=== PATIENT | female | born 1995 | race American Indian/Alaskan Native ===

== ENCOUNTER 2021-03-10 19:03 | Outpatient (CLI) | payer OTHER ==
[2021-03-10 20:26] LABS: Hematocrit 36.5 % (30.3-42.9); Hemoglobin 12.6 gm/dl (10.1-14.3); Mean Corpuscular HGB Conc 34 % (30-34); Mean Corpuscular Volume 96 fl (79-97); Platelet Count 204 K/mm3 (140-440); Red Blood Count 3.82 M/mm3 (3.65-5.03); Red Cell Distribution Width 12.3 % (13.2-15.2)
[2021-03-10 20:28] LABS: Bilirubin,Urine NEG (Negative); Blood,Urine NEG (Negative); Color,Urine Yellow (Yellow); Protein,Urine <15 mg/dL mg/dL (Negative); Urobilinogen,Urine < 2.0 mg/dL (<2.0)
[2021-03-10 20:47] LABS: Alanine Aminotransferase 22 units/L (7-56); Uric Acid 3.6 mg/dL (3.5-7.6)
--- NOTE | 2021-03-10 23:06 | Ultrasound Report ---
ULTRASOUND ABDOMEN, LIMITED (RIGHT UPPER QUADRANT) INDICATION: Right upper quadrant pain. Rule out gallstones. COMPARISON: None available. FINDINGS: PANCREAS: No significant abnormality. LIVER: 16.6 cm in length with a normal echo pattern, no focal lesion and normal directional blood dwayne w in the main portal vein. GALLBLADDER: No significant abnormality. BILE DUCTS: No significant abnormality. Common bile duct measures 3.8 mm. FREE FLUID: None. ADDITIONAL FINDINGS: Images of the right kidney are unremarkable. IMPRESSION: No significant sonographic abnormality of the right upper quadrant. Signer Name: Juan Antonio White MD Signed: 03/10/2021 11:02 PM Workstation Name: [id number]
[2021-03-10 23:18] VITALS: BP 96/58
== END 2021-03-10 23:43 | disposition home or self-care (01) ==
LOC: TRG 19:03 → APU 19:04 → TRG 23:43
PROVIDERS: ATTEND Obstetrics & Gynecology
DX: O26.893 Other specified pregnancy related conditions, third trimester (principal); R10.11 Right upper quadrant pain; Z3A.31 31 weeks gestation of pregnancy
CPT/HCPCS: 36415; 59025; 76705; 81001; 82565; 83615; 84450; 84460; 84550; 85027

== ENCOUNTER 2021-05-09 12:42 | Outpatient (CLI) | payer OTHER ==
[2021-05-09 14:10] VITALS: BP 118/70
--- NOTE | 2021-05-09 15:27 | Ultrasound Report ---
ULTRASOUND BIOPHYSICAL PROFILE INDICATION: NON REACTIVE NST IN THE OFFICE - BPP. COMPARISON: None available. FINDINGS: breathing movement = 2 Gross body movement = 2 tone = 2 Qualitative amniotic fluid volume = 2 Total biophysical score = 8/8 Amniotic fluid index is 9.6 cm. Presentation is Cephalic. heart rate is 157 beats per minute. IMPRESSION: biophysical profile = 09/18 Amniotic fluid index is within normal limits Signer Name: Elliott Waller MD Signed: 05/09/2021 3:22 PM Workstation Name: [id number]
--- NOTE | 2021-05-10 09:23 | Ultrasound Report ---
Limited OB Ultrasound HISTORY: NON REACTIVE NST IN THE OFFICE - NEELIMA. TECHNIQUE: Grayscale and color imaging performed. COMPARISON: Biophysical profile ultrasound from the same day FINDINGS: Single viable intrauterine gestation with cephalic presentation. NEELIMA is 9.6 cm. Heart rate during this portion of the exam was 148 bpm. IMPRESSION: Unremarkable limited exam as above. Signer Name: Ruel Godinez MD Signed: 05/10/2021 9:19 AM Workstation Name: [id number]
== END 2021-05-09 14:38 | disposition home or self-care (01) ==
LOC: TRG 12:42 → APU 12:43 → TRG 14:38
PROVIDERS: ATTEND Obstetrics & Gynecology
DX: Z34.93 Encounter for supervision of normal pregnancy, unspecified, third trimester (principal); Z3A.40 40 weeks gestation of pregnancy
CPT/HCPCS: 59025; 76815; 76819

== ENCOUNTER 2021-05-17 14:30 | Inpatient (IN) | payer OTHER ==
--- NOTE | 2021-05-17 17:09 | History and Physical Report ---
History of Present Illness Date of examination: 05/17/21 Date of admission: 05/18/2021 Chief complaint: My contractions were getting worse. History of present illness: Pt is a @ 41.3 wks who presented to triage with c/o ongoing painful ctxs since 0700am this morning. She was to be admitted for a postdates IOL at 2029. EDC Confirmation: 05/07/2021 Gestational Age: 41.3 weeks on admission Past History : 1 Term Births: 0 Premature Births: 0 Living Children: 0 Para: 0 Mult. Births: 0 Prev : 0 Aborta: 0 Elect. Ab: 0 Spont. Ab: 0 Ectopics: 0 Past Medical History: Reviewed and updated today: Allergies-seasonal Asthma [facility] Past Surgical History: Reviewed and updated today: Negative Past Surgical History Family History Summary: Other Family Member - Has No Family History of Ovarvian Cancer - Entered On: 10/10/2020 Other Family Member - Has No Family History of Colon Cancer - Entered On: 10/10/2020 Other Family Member - Has Family History of Hypertension - Entered On: 10/10/2020 Other Family Member - Has Family History of Diabetes - Entered On: 10/10/2020 Other Family Member - Has Family History Breast Cancer - Entered On: 10/10/2020 Social History: Marital Status: Single Children: 0 Occupation: [employer] Developer Smoking History: Patient has never smoked. Risk Factors: Smoked Tobacco Use: Never smoker Smokeless Tobacco Use: Never Counseled to Quit/Cut Down: yes Passive Smoke Exposure: no HIV High Risk Behavior: low risk Caffeine Use: 0 drinks per day Exercise: yes Times/wk: 4 Type of Exercise: stairs Seatbelt Use: 100 % No Dietary Counseling Reason: pn yes Alcohol Use: yes Drinks per day: <1 Drug Use: yes Drug of Choice: marijuana Past Medical History Surgery (Non-[place]): Negative Past Surgical History Abnormal PAP: negative Uterine Anomaly: negative Social Hx: Marital Status: Single Children: 0 Occupation: [employer] Developer Smoking History: Patient has never smoked. Infection History Hx of STD: none HIV Risk Eval: low risk Hepatitis B Risk Eval: low risk Personal hx. of genital herpes: no Genetic History Congenital Heart Defect: Mom: no Dad: no Wan Disease: Mom: no Dad: no Thalassemia Mom: no Dad: no Neural Tube Defect Mom: no Dad: no Down's Syndrome Mom: no Dad: no Bob-Sachs Mom: no Dad: no Sickle Cell Disease/Trait Mom: no Dad: no Hemophilia Mom: no Dad: no Muscular Dystrophy Mom: no Dad: no Cystic Fibrosis Mom: no Dad: no [place] Chorea Mom: no Dad: no Mental Retardation Mom: no Dad: no Fragile X Mom: no Dad: no Other Genetic/Chromosomal Disorder Mom: no Dad: no Child w/other defect Mom: no Dad: no Enviromental Exposures Xray Exposure: no Medication, drug, or alcohol use since LMP: no Chemical/Other Exposure: no Exposure to Cat Liter: no Active Medications (reviewed today): None Current Allergies: NAPROSYN (Critical) * TRAMADOL (Critical) DC INHIBITORS (Critical) Past History Past Medical History: asthma, GERD, other (Allergies) Social history: no significant social history - Obstetrical History Expected Date of Delivery: 05/07/21 Actual Gestation: 41 Week(s) 3 Day(s) : 1 Para: 0 Hx # Term Pregnancies: 0 Number of Pregnancies: 0 Spontaneous Abortions: 0 Induced : 0 Number of Living Children: 0 Medications and Allergies Allergies Allergy/AdvReac Type Severity Reaction Status Date / Time No Known Allergies Allergy Verified 03/10/21 19:38 Review of Systems All systems: negative - Vital Signs Vital signs: Vital Signs Pulse Pulse Ox 90 97 05/17/21 15:40 05/17/21 15:40 Temp Pulse Resp BP Pulse Ox 98.2 F 93 H 97 05/17/21 15:48 05/17/21 16:35 05/17/21 16:35 - Physical Exam Breasts: Positive: deferred Cardiovascular: Regular rate Lungs: Positive: Normal air movement Abdomen: Positive: normal appearance, soft Genitourinary (Female): Positive: normal external genitalia, normal perenium Vulva: both: normal Vagina: Positive: normal moisture Uterus: Positive: normal size (For 41.3 wks ) Extremities: Positive: normal - Obstetrical FHR: category 1 Uterine Contraction Monitor Mode: External Cervical Dilatation: 0.5 Cervical Effacement Percentage: 40 station: -2 Uterine Contraction Pattern: Irregular Uterine Tone Measurement Phase: Resting Uterine Contraction Intensity: Mild Results Result Diagrams: 05/17/21 20:03 All other labs normal. GBS NEGATIVE HBsAg Screen Negative Negative *1 RPR Non Reactive Non Reactive *2 Rubella Antibodies, IgG 4.39 index Immune >0.99 *3 Non-immune <0.90 Equivocal 0.90 - 0.99 Immune >0.99 ABO Grouping O *4 Rh Factor Positive *5 Please note: Prior records for this patient's ABO / Rh type are not available for additional verification. Antibody Screen Negative Negative *6 Tests: (2) HB Solu + Rflx Frac (273345) Hemoglobin (Hgb) Solubility Negative Negative *31 Tests: (3) HIV Ag/Ab with Reflex ([id number]) HIV Screen 4th Generation wRfx Non Reactive Non Reactive *32 Tests: (4) HCV Antibody reflex to DELORES ([id number]) HCV Ab <0.1 s/co ratio 0.0-0.9 *33 Tests: (5) Interpretation: ([id number]) ! Interpretation: SPRCS *34 Negative Not infected with HCV, unless recent infection is suspected or other evidence exists to indicate HCV infection. Assessment and Plan A: 25 y.o. @ 41.3 wks. - Patient Problems (1) Post term , 41 weeks Current Visit: Yes Status: Acute Plan to address problem: Admit to labor and delivery Initiate IV. Draw admission labs. Pain management: IV pain medication and epidural if pt desires. IOL to be started with Cervidil. Monitor status through EFM.
[2021-05-17] MEDS ORDERED: LOPERAMIDE 2 MG CAP PO PRN (17:30)
[2021-05-17] MEDS ORDERED: NALOXONE 0.4 MG/1 ML INJ IV PRN (17:30)
[2021-05-17] MEDS ORDERED: CARBOPROST TROMETHAMINE 250 MCG/1 ML INJ IM PRN (17:30)
[2021-05-17] MEDS ORDERED: MINERAL OIL 30 ML ORAL LIQD PO PRN (17:30)
[2021-05-17] MEDS ORDERED: ePHEDrine SULFATE 50 MG/1 ML INJ IV PRN (17:30)
[2021-05-17] MEDS ORDERED: PROMETHAZINE 25 MG TAB PO PRN (17:30)
[2021-05-17] MEDS ORDERED: OXYTOCIN 10 UNIT/1 ML INJ IM PRN (17:30)
[2021-05-17] MEDS ORDERED: METHYLERGONOVINE MALEATE 0.2 MG/ML VIAL IM PRN (17:30)
[2021-05-17] MEDS ORDERED: ONDANSETRON 4 MG/2 ML INJ IV PRN (17:30)
[2021-05-17] MEDS ORDERED: ACETAMINOPHEN 325 MG TAB PO PRN (17:30)
[2021-05-17] MEDS ORDERED: fentaNYL 100 MCG/2 ML INJ IV PRN (17:30)
[2021-05-17] MEDS ORDERED: TERBUTALINE 1 MG/1 ML INJ SUB-Q PRN (17:30)
[2021-05-17] MEDS ORDERED: miSOPROStol 200 MCG TAB PR PRN (17:30)
[2021-05-17] MEDS ORDERED: LIDOCAINE (2%) 20 MG/1 ML VIAL 20 ML MDV INFILTRATI SCH (17:30)
[2021-05-17] MEDS ORDERED: DINOPROSTONE 10 MG VAG SUPP VG SCH (18:00)
[2021-05-17] MEDS ORDERED: OXYTOCIN DRIP 30 UNITS/500 ML BAG IV SCH (18:00)
[2021-05-17 20:56] LABS: Hematocrit 40.1 % (30.3-42.9); Hemoglobin 13.6 gm/dl (10.1-14.3); Mean Corpuscular HGB Conc 34 % (30-34); Mean Corpuscular Volume 96 fl (79-97); Platelet Count 224 K/mm3 (140-440); Red Blood Count 4.17 M/mm3 (3.65-5.03); Red Cell Distribution Width 13.9 % (13.2-15.2)
[2021-05-18] MEDS: BUTORPHANOL 2 MG/1 ML INJ IV PRN ×3 (04:28→16:31)
--- NOTE | 2021-05-18 07:13 | Progress Note ---
Assessment and Plan 25y/o @ 41+4 IOL for postdates. Cervidil in placed until 0850, then will allow AM care and reexamine for next step in IOL process. patient resting in bed, plan reviewed with patient, support person and nurses in room. All questions addressed. - Patient Problems (1) Post term , 41 weeks Current Visit: Yes Status: Acute Subjective - Subjective Date of service: 05/18/21 Principal diagnosis: IUP @ 41+3; IOL for postdates Patient reports: contractions, no new complaints, no loss of fluid, no vaginal bleeding Objective - Vital Signs Vital Signs: Vital Signs - 12hr 05/17/21 05/17/21 05/17/21 19:31 19:50 19:55 Temperature Pulse Rate 102 H 101 H 97 H Respiratory 14 Rate Blood Pressure Blood Pressure [Left] O2 Sat by Pulse 98 97 97 Oximetry O2 Sat by Pulse 98 Oximetry [ Bilateral] 05/17/21 05/17/21 05/17/21 20:00 20:05 20:10 Temperature Pulse Rate 104 H 98 H 97 H Respiratory Rate Blood Pressure Blood Pressure [Left] O2 Sat by Pulse 96 96 96 Oximetry O2 Sat by Pulse Oximetry [ Bilateral] 05/17/21 05/17/21 05/17/21 20:15 20:20 20:25 Temperature Pulse Rate 112 H 100 H 95 H Respiratory Rate Blood Pressure Blood Pressure [Left] O2 Sat by Pulse 96 96 97 Oximetry O2 Sat by Pulse Oximetry [ Bilateral] 05/17/21 05/17/21 05/17/21 20:30 20:35 20:36 Temperature Pulse Rate 102 H 100 H 89 Respiratory Rate Blood Pressure 119/83 Blood Pressure [Left] O2 Sat by Pulse 97 97 Oximetry O2 Sat by Pulse Oximetry [ Bilateral] 05/17/21 05/17/21 05/17/21 20:37 20:40 20:45 Temperature 98.2 F Pulse Rate 104 H 103 H Respiratory Rate Blood Pressure Blood Pressure 119/83 [Left] O2 Sat by Pulse 97 97 Oximetry O2 Sat by Pulse Oximetry [ Bilateral] 05/17/21 05/17/21 05/17/21 20:48 20:56 21:01 Temperature Pulse Rate 104 H 101 H 104 H Respiratory Rate Blood Pressure Blood Pressure [Left] O2 Sat by Pulse 94 98 97 Oximetry O2 Sat by Pulse Oximetry [ Bilateral] 05/17/21 05/17/21 05/17/21 21:06 21:11 21:16 Temperature Pulse Rate 99 H 98 H 96 H Respiratory Rate Blood Pressure Blood Pressure [Left] O2 Sat by Pulse 97 96 96 Oximetry O2 Sat by Pulse Oximetry [ Bilateral] 05/17/21 05/17/21 05/17/21 21:21 21:26 21:31 Temperature Pulse Rate 102 H 98 H 94 H Respiratory Rate Blood Pressure Blood Pressure [Left] O2 Sat by Pulse 98 97 97 Oximetry O2 Sat by Pulse Oximetry [ Bilateral] 05/17/21 05/17/21 05/17/21 21:36 21:41 21:46 Temperature Pulse Rate 87 90 95 H Respiratory Rate Blood Pressure Blood Pressure [Left] O2 Sat by Pulse 97 97 96 Oximetry O2 Sat by Pulse Oximetry [ Bilateral] 05/17/21 05/17/21 05/17/21 21:51 21:56 22:01 Temperature Pulse Rate 93 H 92 H 95 H Respiratory Rate Blood Pressure Blood Pressure [Left] O2 Sat by Pulse 97 97 97 Oximetry O2 Sat by Pulse Oximetry [ Bilateral] 05/17/21 05/17/21 05/17/21 22:06 22:11 22:16 Temperature Pulse Rate 93 H 85 88 Respiratory Rate Blood Pressure Blood Pressure [Left] O2 Sat by Pulse 97 97 97 Oximetry O2 Sat by Pulse Oximetry [ Bilateral] 05/17/21 05/17/21 05/17/21 22:21 22:26 22:31 Temperature Pulse Rate 95 H 96 H 89 Respiratory Rate Blood Pressure Blood Pressure [Left] O2 Sat by Pulse 97 97 97 Oximetry O2 Sat by Pulse Oximetry [ Bilateral] 05/17/21 05/17/21 05/17/21 22:36 22:41 22:46 Temperature Pulse Rate 88 91 H 94 H Respiratory Rate Blood Pressure Blood Pressure [Left] O2 Sat by Pulse 97 97 98 Oximetry O2 Sat by Pulse Oximetry [ Bilateral] 05/17/21 05/17/21 05/17/21 22:51 22:56 23:01 Temperature Pulse Rate 94 H 88 98 H Respiratory Rate Blood Pressure Blood Pressure [Left] O2 Sat by Pulse 97 97 97 Oximetry O2 Sat by Pulse Oximetry [ Bilateral] 05/17/21 05/17/21 05/17/21 23:06 23:11 23:19 Temperature Pulse Rate 107 H 102 H 87 Respiratory Rate Blood Pressure Blood Pressure [Left] O2 Sat by Pulse 97 97 99 Oximetry O2 Sat by Pulse Oximetry [ Bilateral] 05/17/21 05/17/21 05/17/21 23:24 23:29 23:34 Temperature Pulse Rate 91 H 86 97 H Respiratory Rate Blood Pressure Blood Pressure [Left] O2 Sat by Pulse 98 96 98 Oximetry O2 Sat by Pulse Oximetry [ Bilateral] 05/17/21 05/17/21 05/17/21 23:39 23:44 23:49 Temperature Pulse Rate 85 87 91 H Respiratory Rate Blood Pressure Blood Pressure [Left] O2 Sat by Pulse 97 98 98 Oximetry O2 Sat by Pulse Oximetry [ Bilateral] 05/17/21 05/17/21 05/18/21 23:50 23:55 00:00 Temperature Pulse Rate 87 90 95 H Respiratory Rate Blood Pressure Blood Pressure [Left] O2 Sat by Pulse 97 98 98 Oximetry O2 Sat by Pulse Oximetry [ Bilateral] 05/18/21 05/18/21 05/18/21 00:05 00:10 00:12 Temperature Pulse Rate 98 H 91 H 97 H Respiratory Rate Blood Pressure Blood Pressure [Left] O2 Sat by Pulse 98 98 97 Oximetry O2 Sat by Pulse Oximetry [ Bilateral] 05/18/21 05/18/21 05/18/21 00:16 00:21 00:26 Temperature Pulse Rate 102 H 96 H 95 H Respiratory Rate Blood Pressure Blood Pressure [Left] O2 Sat by Pulse 97 97 97 Oximetry O2 Sat by Pulse Oximetry [ Bilateral] 05/18/21 05/18/21 05/18/21 00:31 00:36 00:40 Temperature Pulse Rate 101 H 96 H 81 Respiratory Rate Blood Pressure Blood Pressure [Left] O2 Sat by Pulse 97 97 90 Oximetry O2 Sat by Pulse Oximetry [ Bilateral] 05/18/21 05/18/21 05/18/21 00:41 00:46 00:51 Temperature Pulse Rate 96 H 98 H 90 Respiratory Rate Blood Pressure Blood Pressure [Left] O2 Sat by Pulse 97 98 97 Oximetry O2 Sat by Pulse Oximetry [ Bilateral] 05/18/21 05/18/21 05/18/21 00:56 01:01 01:32 Temperature Pulse Rate 99 H 88 89 Respiratory Rate Blood Pressure Blood Pressure [Left] O2 Sat by Pulse 98 96 98 Oximetry O2 Sat by Pulse Oximetry [ Bilateral] 05/18/21 05/18/21 05/18/21 01:33 01:37 01:42 Temperature Pulse Rate 87 105 H 94 H Respiratory Rate Blood Pressure 142/96 Blood Pressure [Left] O2 Sat by Pulse 98 98 Oximetry O2 Sat by Pulse Oximetry [ Bilateral] 05/18/21 05/18/21 05/18/21 01:47 01:52 01:57 Temperature Pulse Rate 87 89 96 H Respiratory Rate Blood Pressure Blood Pressure [Left] O2 Sat by Pulse 97 97 97 Oximetry O2 Sat by Pulse Oximetry [ Bilateral] 05/18/21 05/18/21 05/18/21 02:02 02:04 02:07 Temperature Pulse Rate 94 H 98 H 83 Respiratory Rate Blood Pressure 128/87 Blood Pressure [Left] O2 Sat by Pulse 97 98 Oximetry O2 Sat by Pulse Oximetry [ Bilateral] 05/18/21 05/18/21 05/18/21 02:12 02:17 02:22 Temperature Pulse Rate 85 83 84 Respiratory Rate Blood Pressure Blood Pressure [Left] O2 Sat by Pulse 98 98 98 Oximetry O2 Sat by Pulse Oximetry [ Bilateral] 05/18/21 05/18/21 05/18/21 02:27 02:32 02:33 Temperature Pulse Rate 84 81 81 Respiratory Rate Blood Pressure 132/85 Blood Pressure [Left] O2 Sat by Pulse 97 98 Oximetry O2 Sat by Pulse Oximetry [ Bilateral] 05/18/21 05/18/21 05/18/21 02:37 02:42 02:47 Temperature Pulse Rate 78 99 H 88 Respiratory Rate Blood Pressure Blood Pressure [Left] O2 Sat by Pulse 98 98 97 Oximetry O2 Sat by Pulse Oximetry [ Bilateral] 05/18/21 05/18/21 05/18/21 02:52 02:57 03:11 Temperature Pulse Rate 89 99 H 98 H Respiratory Rate Blood Pressure Blood Pressure [Left] O2 Sat by Pulse 98 98 98 Oximetry O2 Sat by Pulse Oximetry [ Bilateral] 05/18/21 05/18/21 05/18/21 03:16 03:21 03:26 Temperature Pulse Rate 90 92 H 97 H Respiratory Rate Blood Pressure Blood Pressure [Left] O2 Sat by Pulse 98 99 99 Oximetry O2 Sat by Pulse Oximetry [ Bilateral] 05/18/21 05/18/21 05/18/21 03:31 03:36 03:41 Temperature Pulse Rate 93 H 83 88 Respiratory Rate Blood Pressure Blood Pressure [Left] O2 Sat by Pulse 98 98 98 Oximetry O2 Sat by Pulse Oximetry [ Bilateral] 05/18/21 05/18/21 05/18/21 03:46 03:51 03:56 Temperature Pulse Rate 92 H 88 88 Respiratory Rate Blood Pressure Blood Pressure [Left] O2 Sat by Pulse 97 97 97 Oximetry O2 Sat by Pulse Oximetry [ Bilateral] 05/18/21 05/18/21 05/18/21 04:01 04:06 04:11 Temperature Pulse Rate 83 85 71 Respiratory Rate Blood Pressure Blood Pressure [Left] O2 Sat by Pulse 99 97 96 Oximetry O2 Sat by Pulse Oximetry [ Bilateral] 05/18/21 05/18/21 05/18/21 04:13 04:16 04:20 Temperature Pulse Rate 77 69 79 Respiratory Rate Blood Pressure 133/90 Blood Pressure [Left] O2 Sat by Pulse 96 94 Oximetry O2 Sat by Pulse Oximetry [ Bilateral] 05/18/21 05/18/21 05/18/21 04:21 04:26 04:31 Temperature Pulse Rate 80 78 81 Respiratory Rate Blood Pressure Blood Pressure [Left] O2 Sat by Pulse 95 95 94 Oximetry O2 Sat by Pulse Oximetry [ Bilateral] 05/18/21 05/18/21 05/18/21 04:36 04:41 04:43 Temperature Pulse Rate 78 76 71 Respiratory Rate Blood Pressure 131/92 Blood Pressure [Left] O2 Sat by Pulse 95 94 Oximetry O2 Sat by Pulse Oximetry [ Bilateral] 05/18/21 05/18/21 05/18/21 04:46 04:51 04:56 Temperature Pulse Rate 73 76 74 Respiratory Rate Blood Pressure Blood Pressure [Left] O2 Sat by Pulse 95 95 95 Oximetry O2 Sat by Pulse Oximetry [ Bilateral] 05/18/21 05/18/21 05/18/21 05:01 05:06 05:07 Temperature Pulse Rate 80 84 81 Respiratory Rate Blood Pressure Blood Pressure [Left] O2 Sat by Pulse 95 95 92 Oximetry O2 Sat by Pulse Oximetry [ Bilateral] 05/18/21 05/18/21 05/18/21 05:11 05:13 05:16 Temperature Pulse Rate 79 76 80 Respiratory Rate Blood Pressure 123/89 Blood Pressure [Left] O2 Sat by Pulse 95 95 Oximetry O2 Sat by Pulse Oximetry [ Bilateral] 05/18/21 05/18/21 05/18/21 05:17 05:21 05:26 Temperature Pulse Rate 77 77 83 Respiratory Rate Blood Pressure Blood Pressure [Left] O2 Sat by Pulse 93 96 96 Oximetry O2 Sat by Pulse Oximetry [ Bilateral] 05/18/21 05/18/21 05/18/21 05:31 05:36 05:41 Temperature Pulse Rate 83 78 86 Respiratory Rate Blood Pressure Blood Pressure [Left] O2 Sat by Pulse 97 97 97 Oximetry O2 Sat by Pulse Oximetry [ Bilateral] 05/18/21 05/18/21 05/18/21 05:43 05:46 05:51 Temperature Pulse Rate 87 86 82 Respiratory Rate Blood Pressure 115/82 Blood Pressure [Left] O2 Sat by Pulse 97 97 Oximetry O2 Sat by Pulse Oximetry [ Bilateral] 05/18/21 05/18/21 05/18/21 05:56 06:09 06:14 Temperature Pulse Rate 89 83 76 Respiratory Rate Blood Pressure Blood Pressure [Left] O2 Sat by Pulse 97 97 97 Oximetry O2 Sat by Pulse Oximetry [ Bilateral] 05/18/21 05/18/21 05/18/21 06:19 06:24 06:29 Temperature Pulse Rate 91 H 81 81 Respiratory Rate Blood Pressure Blood Pressure [Left] O2 Sat by Pulse 99 99 98 Oximetry O2 Sat by Pulse Oximetry [ Bilateral] 05/18/21 05/18/21 05/18/21 06:34 06:39 06:44 Temperature Pulse Rate 74 77 79 Respiratory Rate Blood Pressure Blood Pressure [Left] O2 Sat by Pulse 98 98 97 Oximetry O2 Sat by Pulse Oximetry [ Bilateral] 05/18/21 05/18/21 05/18/21 06:49 06:54 06:59 Temperature Pulse Rate 85 84 89 Respiratory Rate Blood Pressure Blood Pressure [Left] O2 Sat by Pulse 96 96 95 Oximetry O2 Sat by Pulse Oximetry [ Bilateral] 05/18/21 05/18/21 07:04 07:09 Temperature Pulse Rate 86 84 Respiratory Rate Blood Pressure Blood Pressure [Left] O2 Sat by Pulse 95 95 Oximetry O2 Sat by Pulse Oximetry [ Bilateral] - Exam Cardiovascular: Regular rate Lungs: Normal air movement Abdomen: Present: normal appearance, soft Uterus: Present: normal, fundal height above umbilicus FHR: category 1 Uterine Contraction Monitor Mode: External Uterine Contraction Pattern: Regular Uterine Tone Measurement Phase: Contraction Uterine Contraction Intensity: Mild - Labs Labs: Abnormal Labs 05/17/21 20:03 MCH 33 H Laboratory Results - last 24 hr 05/17/21 05/17/21 05/17/21 20:03 20:03 20:03 WBC 5.4 RBC 4.17 Hgb 13.6 Hct 40.1 MCV 96 MCH 33 H MCHC 34 RDW 13.9 Plt Count 224 Syphilis IgG/IgM Ab Nonreactive Blood Type O POSITIVE Antibody Screen Negative
[2021-05-18] MEDS: LACTATED RINGERS 1,000 ML IV SCH (11:52)
[2021-05-18] MEDS: OXYTOCIN DRIP 30 UNITS/500 ML BAG IV SCH (18:00)
[2021-05-18] MEDS ORDERED: NALOXONE 2 MG/2 ML INJ IV PRN (21:30)
[2021-05-18] MEDS ORDERED: ePHEDrine SULFATE 50 MG/1 ML INJ IV PRN (21:30)
[2021-05-18] MEDS ORDERED: LACTATED RINGERS 250 ML IV SOLN IV ONE (21:30)
[2021-05-18] MEDS ORDERED: diphenhydrAMINE 50 MG/ML VIAL IV PRN (21:30)
[2021-05-18] MEDS ORDERED: NalbUPHINE 10 MG/1 ML INJ IV PRN (21:30)
[2021-05-18] MEDS ORDERED: ONDANSETRON 4 MG/2 ML INJ IV PRN (21:30)
[2021-05-18] MEDS ORDERED: fentaNYL-BUPIV 2 MCG/ML-0.125% 200 MCG/100 ML BAG EPIDURAL SCH (22:00)
--- NOTE | 2021-05-18 22:00 | Anesthesia Consultation ---
Anesthesia Consult and Med Hx Date of service: 05/18/21 - Airway Anesthetic Teeth Evaluation: Good ROM Head & Neck: Adequate Mental/Hyoid Distance: Adequate Mallampati Class: Class II Intubation Access Assessment: Probably Good - Pulmonary Exam CTA: Yes - Cardiac Exam Cardiac Exam: RRR - Pre-Operative Health Status ASA Pre-Surgery Classification: ASA2 Proposed Anesthetic Plan: Epidural - Pulmonary Hx Smoking: No Hx Asthma: Yes (Childhood, only sometimes now) Hx Sleep Apnea: No - Cardiovascular System Hx Hypertension: No Hx Heart Attack/AMI: No Hx Angina: No - Central Nervous System Hx Seizures: No Hx Psychiatric Problems: No - Gastrointestinal Hx Gastroesophageal Reflux Disease: No - Endocrine Hx Renal Disease: No Hx Liver Disease: No Hx Insulin Dependent Diabetes: No Hx Non-Insulin Dependent Diabetes: No Hx Hypothyroidism: No Hx Hyperthyroidism: No - Hematic Hx Anemia: No Hx Sickle Cell Disease: No - Other Systems Hx Alcohol Use: No
--- NOTE | 2021-05-18 22:01 | Progress Note ---
Labor Epidural - Labor Epidural Start Time: 21:42 Stop Time: 21:51 Performed by:: GREG MANTILLA Procedure: Patient is requesting epidural for labor and pain. H&P, labs were reviewed. Patient IDed, all questions and concerns were answered, and consent was signed. Timeout was performed at bedside. Patient in sitting position. Sterile prep and drape was performed. 3ml of 1% lidocaine skin wheal at L[3]- L [4]. 17- gauge Tuohy epidural needle was advanced to loss of resistance with air technique 6cm. Negative CSF negative blood. Epidural catheter advanced to [11] centimeters. [negative] Aspiration [negative] test dose. Sterile dressing applied. Patient tolerated procedure.
--- NOTE | 2021-05-18 22:15 | Progress Note ---
Assessment and Plan Pt comfortable s/p epidural. Pitocin infusing @4mL/hr. D/w pt risks and benefits of and need for labor augmentation with ROM and IUPC placement. Pt verbalizes understanding and expresses desires for CNM not to perform AROM at this time. Plan discussed to reexamine in 2 hours. FHT's category 1 - Patient Problems (1) Post term , 41 weeks Current Visit: Yes Status: Acute Subjective - Subjective Date of service: 05/18/21 Principal diagnosis: IUP @41.4wks, Postdates IOL Patient reports: contractions, no new complaints, no loss of fluid, no vaginal bleeding Objective - Vital Signs Vital Signs: Vital Signs - 12hr 05/18/21 05/18/21 05/18/21 12:02 12:07 12:12 Temperature Pulse Rate 67 81 79 Respiratory Rate Blood Pressure Blood Pressure [Left] O2 Sat by Pulse 84 97 97 Oximetry O2 Sat by Pulse Oximetry [ Bilateral] 05/18/21 05/18/21 05/18/21 12:17 12:22 12:24 Temperature Pulse Rate 79 83 100 H Respiratory Rate Blood Pressure Blood Pressure [Left] O2 Sat by Pulse 95 96 94 Oximetry O2 Sat by Pulse Oximetry [ Bilateral] 05/18/21 05/18/21 05/18/21 12:27 12:31 12:32 Temperature Pulse Rate 88 87 86 Respiratory Rate Blood Pressure Blood Pressure [Left] O2 Sat by Pulse 96 94 94 Oximetry O2 Sat by Pulse Oximetry [ Bilateral] 05/18/21 05/18/21 05/18/21 12:37 12:42 12:43 Temperature Pulse Rate 83 96 H 96 H Respiratory Rate Blood Pressure Blood Pressure [Left] O2 Sat by Pulse 95 94 94 Oximetry O2 Sat by Pulse Oximetry [ Bilateral] 05/18/21 05/18/21 05/18/21 12:47 12:50 12:52 Temperature Pulse Rate 100 H 91 H 98 H Respiratory Rate Blood Pressure Blood Pressure [Left] O2 Sat by Pulse 96 93 96 Oximetry O2 Sat by Pulse Oximetry [ Bilateral] 05/18/21 05/18/21 05/18/21 12:57 13:02 13:07 Temperature Pulse Rate 98 H 83 98 H Respiratory Rate Blood Pressure Blood Pressure [Left] O2 Sat by Pulse 96 96 96 Oximetry O2 Sat by Pulse Oximetry [ Bilateral] 0405/18/21 05/18/21 13:12 13:17 13:22 Temperature Pulse Rate 87 89 94 H Respiratory Rate Blood Pressure Blood Pressure [Left] O2 Sat by Pulse 96 97 98 Oximetry O2 Sat by Pulse Oximetry [ Bilateral] 05/18/21 05/18/21 05/18/21 13:27 13:32 13:37 Temperature Pulse Rate 92 H 91 H 92 H Respiratory Rate Blood Pressure Blood Pressure [Left] O2 Sat by Pulse 97 97 98 Oximetry O2 Sat by Pulse Oximetry [ Bilateral] 05/18/21 05/18/21 05/18/21 13:42 13:47 13:52 Temperature Pulse Rate 90 98 H 98 H Respiratory Rate Blood Pressure Blood Pressure [Left] O2 Sat by Pulse 98 98 97 Oximetry O2 Sat by Pulse Oximetry [ Bilateral] 05/18/21 05/18/21 05/18/21 13:57 14:02 14:07 Temperature Pulse Rate 91 H 85 86 Respiratory Rate Blood Pressure Blood Pressure [Left] O2 Sat by Pulse 97 98 99 Oximetry O2 Sat by Pulse Oximetry [ Bilateral] 05/18/21 05/18/21 05/18/21 14:12 14:17 14:22 Temperature Pulse Rate 98 H 86 90 Respiratory Rate Blood Pressure Blood Pressure [Left] O2 Sat by Pulse 98 98 98 Oximetry O2 Sat by Pulse Oximetry [ Bilateral] 05/18/21 05/18/21 05/18/21 14:27 14:32 14:37 Temperature Pulse Rate 84 83 75 Respiratory Rate Blood Pressure Blood Pressure [Left] O2 Sat by Pulse 98 98 97 Oximetry O2 Sat by Pulse Oximetry [ Bilateral] 05/18/21 05/18/21 05/18/21 14:42 14:48 14:53 Temperature Pulse Rate 103 H 80 88 Respiratory Rate Blood Pressure Blood Pressure [Left] O2 Sat by Pulse 96 97 97 Oximetry O2 Sat by Pulse Oximetry [ Bilateral] 05/18/21 05/18/21 05/18/21 14:58 15:03 15:08 Temperature Pulse Rate 85 92 H 95 H Respiratory Rate Blood Pressure Blood Pressure [Left] O2 Sat by Pulse 97 96 98 Oximetry O2 Sat by Pulse Oximetry [ Bilateral] 05/18/21 05/18/21 05/18/21 15:13 15:18 15:23 Temperature Pulse Rate 76 84 79 Respiratory Rate Blood Pressure Blood Pressure [Left] O2 Sat by Pulse 98 97 96 Oximetry O2 Sat by Pulse Oximetry [ Bilateral] 05/18/21 05/18/21 05/18/21 15:24 15:28 15:33 Temperature Pulse Rate 88 87 80 Respiratory Rate Blood Pressure Blood Pressure [Left] O2 Sat by Pulse 94 96 95 Oximetry O2 Sat by Pulse Oximetry [ Bilateral] 05/18/21 05/18/21 05/18/21 15:38 15:43 15:48 Temperature Pulse Rate 79 83 82 Respiratory Rate Blood Pressure Blood Pressure [Left] O2 Sat by Pulse 96 98 98 Oximetry O2 Sat by Pulse Oximetry [ Bilateral] 05/18/21 05/18/21 05/18/21 15:53 15:58 16:03 Temperature Pulse Rate 80 84 87 Respiratory Rate Blood Pressure Blood Pressure [Left] O2 Sat by Pulse 97 97 95 Oximetry O2 Sat by Pulse Oximetry [ Bilateral] 05/18/21 05/18/21 05/18/21 16:08 16:13 16:18 Temperature Pulse Rate 83 90 106 H Respiratory Rate Blood Pressure Blood Pressure [Left] O2 Sat by Pulse 95 96 96 Oximetry O2 Sat by Pulse Oximetry [ Bilateral] 05/18/21 05/18/21 05/18/21 16:23 16:31 16:36 Temperature Pulse Rate 91 H 89 86 Respiratory Rate Blood Pressure Blood Pressure [Left] O2 Sat by Pulse 97 98 97 Oximetry O2 Sat by Pulse Oximetry [ Bilateral] 05/18/21 05/18/21 05/18/21 16:41 16:43 16:46 Temperature Pulse Rate 72 76 77 Respiratory Rate Blood Pressure Blood Pressure [Left] O2 Sat by Pulse 96 94 96 Oximetry O2 Sat by Pulse Oximetry [ Bilateral] 05/18/21 05/18/21 05/18/21 16:51 16:56 16:58 Temperature Pulse Rate 82 80 80 Respiratory Rate Blood Pressure Blood Pressure [Left] O2 Sat by Pulse 95 95 93 Oximetry O2 Sat by Pulse Oximetry [ Bilateral] 05/18/21 05/18/21 05/18/21 17:01 17:05 17:06 Temperature Pulse Rate 78 76 76 Respiratory Rate Blood Pressure Blood Pressure [Left] O2 Sat by Pulse 95 94 96 Oximetry O2 Sat by Pulse Oximetry [ Bilateral] 05/18/21 05/18/21 05/18/21 17:11 17:14 17:16 Temperature Pulse Rate 79 82 77 Respiratory Rate Blood Pressure Blood Pressure [Left] O2 Sat by Pulse 95 92 95 Oximetry O2 Sat by Pulse Oximetry [ Bilateral] 05/18/21 05/18/21 05/18/21 17:21 17:26 17:31 Temperature Pulse Rate 79 78 76 Respiratory Rate Blood Pressure Blood Pressure [Left] O2 Sat by Pulse 95 96 96 Oximetry O2 Sat by Pulse Oximetry [ Bilateral] 05/18/21 05/18/21 05/18/21 17:36 17:41 17:46 Temperature Pulse Rate 78 79 81 Respiratory Rate Blood Pressure Blood Pressure [Left] O2 Sat by Pulse 95 96 96 Oximetry O2 Sat by Pulse Oximetry [ Bilateral] 05/18/21 05/18/21 05/18/21 17:48 17:51 17:56 Temperature Pulse Rate 80 79 80 Respiratory Rate Blood Pressure Blood Pressure [Left] O2 Sat by Pulse 94 96 97 Oximetry O2 Sat by Pulse Oximetry [ Bilateral] 05/18/21 05/18/21 05/18/21 18:01 18:06 18:11 Temperature Pulse Rate 74 93 H 86 Respiratory Rate Blood Pressure Blood Pressure [Left] O2 Sat by Pulse 96 97 98 Oximetry O2 Sat by Pulse Oximetry [ Bilateral] 05/18/21 05/18/21 05/18/21 18:23 18:28 18:33 Temperature Pulse Rate 85 90 84 Respiratory Rate Blood Pressure Blood Pressure [Left] O2 Sat by Pulse 97 98 98 Oximetry O2 Sat by Pulse Oximetry [ Bilateral] 05/18/21 05/18/21 05/18/21 18:38 18:43 18:48 Temperature Pulse Rate 82 84 87 Respiratory Rate Blood Pressure Blood Pressure [Left] O2 Sat by Pulse 98 97 98 Oximetry O2 Sat by Pulse Oximetry [ Bilateral] 05/18/21 05/18/21 05/18/21 18:53 18:58 19:03 Temperature Pulse Rate 85 80 80 Respiratory Rate Blood Pressure Blood Pressure [Left] O2 Sat by Pulse 98 96 96 Oximetry O2 Sat by Pulse Oximetry [ Bilateral] 05/18/21 05/18/21 05/18/21 19:08 19:10 19:13 Temperature 98 F Pulse Rate 92 H 83 Respiratory 18 Rate Blood Pressure Blood Pressure 131/91 [Left] O2 Sat by Pulse 97 98 Oximetry O2 Sat by Pulse 98 Oximetry [ Bilateral] 05/18/21 05/18/21 05/18/21 19:15 19:18 19:23 Temperature Pulse Rate 81 88 78 Respiratory Rate Blood Pressure 131/91 Blood Pressure [Left] O2 Sat by Pulse 97 97 Oximetry O2 Sat by Pulse Oximetry [ Bilateral] 05/18/21 05/18/21 05/18/21 19:28 19:33 19:38 Temperature Pulse Rate 88 77 80 Respiratory Rate Blood Pressure Blood Pressure [Left] O2 Sat by Pulse 97 96 97 Oximetry O2 Sat by Pulse Oximetry [ Bilateral] 05/18/21 05/18/21 05/18/21 19:43 19:48 19:53 Temperature Pulse Rate 103 H 96 H 79 Respiratory Rate Blood Pressure Blood Pressure [Left] O2 Sat by Pulse 96 98 97 Oximetry O2 Sat by Pulse Oximetry [ Bilateral] 05/18/21 05/18/21 05/18/21 19:58 20:03 20:08 Temperature Pulse Rate 83 82 84 Respiratory Rate Blood Pressure Blood Pressure [Left] O2 Sat by Pulse 97 96 97 Oximetry O2 Sat by Pulse Oximetry [ Bilateral] 05/18/21 05/18/21 05/18/21 20:13 20:18 20:23 Temperature Pulse Rate 87 88 83 Respiratory Rate Blood Pressure Blood Pressure [Left] O2 Sat by Pulse 96 97 97 Oximetry O2 Sat by Pulse Oximetry [ Bilateral] 05/18/21 05/18/21 05/18/21 20:31 20:36 20:41 Temperature Pulse Rate 92 H 80 83 Respiratory Rate Blood Pressure Blood Pressure [Left] O2 Sat by Pulse 98 97 96 Oximetry O2 Sat by Pulse Oximetry [ Bilateral] 05/18/21 05/18/21 05/18/21 20:46 20:51 20:56 Temperature Pulse Rate 93 H 88 91 H Respiratory Rate Blood Pressure Blood Pressure [Left] O2 Sat by Pulse 97 97 96 Oximetry O2 Sat by Pulse Oximetry [ Bilateral] 05/18/21 05/18/21 05/18/21 21:01 21:03 21:06 Temperature Pulse Rate 76 90 87 Respiratory Rate Blood Pressure Blood Pressure [Left] O2 Sat by Pulse 97 94 97 Oximetry O2 Sat by Pulse Oximetry [ Bilateral] 05/18/21 05/18/21 05/18/21 21:10 21:11 21:16 Temperature Pulse Rate 85 87 85 Respiratory Rate Blood Pressure Blood Pressure [Left] O2 Sat by Pulse 94 97 97 Oximetry O2 Sat by Pulse Oximetry [ Bilateral] 05/18/21 05/18/21 05/18/21 21:17 21:21 21:29 Temperature Pulse Rate 84 95 H 87 Respiratory Rate Blood Pressure Blood Pressure [Left] O2 Sat by Pulse 94 98 95 Oximetry O2 Sat by Pulse Oximetry [ Bilateral] 05/18/21 05/18/21 05/18/21 21:30 21:34 21:37 Temperature Pulse Rate 79 78 82 Respiratory Rate Blood Pressure 152/99 Blood Pressure [Left] O2 Sat by Pulse 95 93 Oximetry O2 Sat by Pulse Oximetry [ Bilateral] 05/18/21 05/18/21 05/18/21 21:39 21:44 21:49 Temperature Pulse Rate 86 85 78 Respiratory Rate Blood Pressure Blood Pressure [Left] O2 Sat by Pulse 98 97 97 Oximetry O2 Sat by Pulse Oximetry [ Bilateral] 05/18/21 05/18/21 05/18/21 21:51 21:53 21:54 Temperature Pulse Rate 85 86 90 Respiratory Rate Blood Pressure 128/87 133/90 Blood Pressure [Left] O2 Sat by Pulse 97 Oximetry O2 Sat by Pulse Oximetry [ Bilateral] 05/18/21 05/18/21 05/18/21 21:55 21:57 21:59 Temperature Pulse Rate 93 H 80 91 H Respiratory Rate Blood Pressure 134/91 134/98 119/91 Blood Pressure [Left] O2 Sat by Pulse 97 Oximetry O2 Sat by Pulse Oximetry [ Bilateral] 05/18/21 05/18/21 05/18/21 22:04 22:05 22:09 Temperature Pulse Rate 88 83 75 Respiratory Rate Blood Pressure 109/79 Blood Pressure [Left] O2 Sat by Pulse 97 95 Oximetry O2 Sat by Pulse Oximetry [ Bilateral] 05/18/21 22:10 Temperature Pulse Rate 80 Respiratory Rate Blood Pressure 123/78 Blood Pressure [Left] O2 Sat by Pulse Oximetry O2 Sat by Pulse Oximetry [ Bilateral] - Exam Breasts: deferred Cardiovascular: Regular rate Lungs: Normal air movement Abdomen: Present: normal appearance, soft. Absent: distention, tenderness, guarding Vulva: both: normal Uterus: Present: normal, other (gravid). Absent: tenderness FHR: auscultation normal, category 1 Uterine Contraction Monitor Mode: External Cervical Dilatation: 4 Cervical Effacement Percentage: 90 station: -2 Uterine Contraction Frequency (min): 2-4 Uterine Contraction Pattern: Regular Uterine Tone Measurement Phase: Contraction Uterine Contraction Intensity: Moderate Extremities: normal - Labs Labs: Abnormal Labs 05/17/21 20:03 MCH 33 H Laboratory Results - last 24 hr 05/18/21 09:25 SARS-CoV-2 (PCR) Negative
[2021-05-19] MEDS: LACTATED RINGERS 1,000 ML IV SCH ×2 (02:06→09:23)
--- NOTE | 2021-05-19 02:39 | Event Note ---
Date: 05/19/21 SVE /-2 BBOW; Pt agrees to POC at this time. AROM performed, clear fluid, and IUPC placed. Pt tolerated well. FHT's category 1. Anticipate .
--- NOTE | 2021-05-19 07:35 | Progress Note ---
Assessment and Plan A: 25 y.o. @ 41.4 wks postdates IOL. - Patient Problems (1) Post term , 41 weeks Current Visit: Yes Status: Acute Plan to address problem: Increase Pitocin per protocol. Position changes. Speak with anesthesia regarding pt starting to feel contractions. Reassess Cervix in about 3 hours. Subjective - Subjective Date of service: 05/19/21 Principal diagnosis: IUP @41.5wks, Postdates IOL Interval history: Pt states that she is feeling as though one leg is more numb. She is feeling more pressure. Discussed with patient that an epidural will take the edge of the pain, but she will probably feel pressure. Discussed with patient slow cervical change and possibility for a if her cervix remains unchanged over the next few hours. Pt verbalized understanding, but would like to continue with IOL before a is performed. Patient reports: other (Feeling some pressure. ) Objective - Vital Signs Vital Signs: Vital Signs - 12hr 05/18/21 05/18/21 05/18/21 19:33 19:38 19:43 Temperature Pulse Rate 77 80 103 H Respiratory Rate Blood Pressure O2 Sat by Pulse 96 97 96 Oximetry 05/18/21 05/18/21 05/18/21 19:48 19:53 19:58 Temperature Pulse Rate 96 H 79 83 Respiratory Rate Blood Pressure O2 Sat by Pulse 98 97 97 Oximetry 05/18/21 05/18/21 05/18/21 20:03 20:08 20:13 Temperature Pulse Rate 82 84 87 Respiratory Rate Blood Pressure O2 Sat by Pulse 96 97 96 Oximetry 05/18/21 05/18/21 05/18/21 20:18 20:23 20:31 Temperature Pulse Rate 88 83 92 H Respiratory Rate Blood Pressure O2 Sat by Pulse 97 97 98 Oximetry 05/18/21 05/18/21 05/18/21 20:36 20:41 20:46 Temperature Pulse Rate 80 83 93 H Respiratory Rate Blood Pressure O2 Sat by Pulse 97 96 97 Oximetry 05/18/21 05/18/21 05/18/21 20:51 20:56 21:01 Temperature Pulse Rate 88 91 H 76 Respiratory Rate Blood Pressure O2 Sat by Pulse 97 96 97 Oximetry 05/18/21 05/18/21 05/18/21 21:03 21:06 21:10 Temperature Pulse Rate 90 87 85 Respiratory Rate Blood Pressure O2 Sat by Pulse 94 97 94 Oximetry 05/18/21 05/18/21 05/18/21 21:11 21:16 21:17 Temperature Pulse Rate 87 85 84 Respiratory Rate Blood Pressure O2 Sat by Pulse 97 97 94 Oximetry 05/18/21 05/18/21 05/18/21 21:21 21:29 21:30 Temperature Pulse Rate 95 H 87 79 Respiratory Rate Blood Pressure 152/99 O2 Sat by Pulse 98 95 Oximetry 05/18/21 05/18/21 05/18/21 21:34 21:37 21:39 Temperature Pulse Rate 78 82 86 Respiratory Rate Blood Pressure O2 Sat by Pulse 95 93 98 Oximetry 05/18/21 05/18/21 05/18/21 21:44 21:49 21:51 Temperature Pulse Rate 85 78 85 Respiratory Rate Blood Pressure 128/87 O2 Sat by Pulse 97 97 Oximetry 05/18/21 05/18/21 05/18/21 21:53 21:54 21:55 Temperature Pulse Rate 86 90 93 H Respiratory Rate Blood Pressure 133/90 134/91 O2 Sat by Pulse 97 Oximetry 05/18/21 05/18/21 05/18/21 21:57 21:59 22:04 Temperature Pulse Rate 80 91 H 88 Respiratory Rate Blood Pressure 134/98 119/91 O2 Sat by Pulse 97 97 Oximetry 05/18/21 05/18/21 05/18/21 22:05 22:09 22:10 Temperature Pulse Rate 83 75 80 Respiratory Rate Blood Pressure 109/79 123/78 O2 Sat by Pulse 95 Oximetry 05/18/21 05/18/21 05/18/21 22:14 22:19 22:24 Temperature Pulse Rate 74 90 90 Respiratory Rate Blood Pressure O2 Sat by Pulse 97 98 97 Oximetry 05/18/21 05/18/21 05/18/21 22:27 22:29 22:35 Temperature Pulse Rate 90 68 85 Respiratory Rate Blood Pressure 121/68 O2 Sat by Pulse 97 96 Oximetry 05/18/21 05/18/21 05/18/21 22:39 22:41 22:43 Temperature Pulse Rate 71 82 84 Respiratory Rate Blood Pressure 118/76 O2 Sat by Pulse 98 94 Oximetry 05/18/21 05/18/21 05/18/21 22:44 22:47 22:50 Temperature Pulse Rate 88 80 82 Respiratory Rate Blood Pressure O2 Sat by Pulse 94 94 96 Oximetry 05/18/21 05/18/21 05/18/21 22:52 22:54 22:57 Temperature Pulse Rate 79 87 74 Respiratory Rate Blood Pressure 112/79 O2 Sat by Pulse 94 94 Oximetry 05/18/21 05/18/21 05/18/21 22:59 23:04 23:06 Temperature Pulse Rate 68 70 71 Respiratory Rate Blood Pressure O2 Sat by Pulse 96 97 94 Oximetry 05/18/21 05/18/21 05/18/21 23:09 23:10 23:14 Temperature Pulse Rate 72 73 70 Respiratory Rate Blood Pressure 113/79 O2 Sat by Pulse 97 97 Oximetry 05/18/21 05/18/21 05/18/21 23:19 23:24 23:25 Temperature Pulse Rate 69 73 72 Respiratory Rate Blood Pressure 115/80 O2 Sat by Pulse 96 97 Oximetry 05/18/21 05/18/21 05/18/21 23:29 23:34 23:40 Temperature Pulse Rate 71 73 73 Respiratory Rate Blood Pressure O2 Sat by Pulse 97 97 97 Oximetry 05/18/21 05/18/21 05/18/21 23:42 23:44 23:49 Temperature Pulse Rate 74 78 75 Respiratory Rate Blood Pressure 112/81 O2 Sat by Pulse 99 98 Oximetry 05/18/21 05/18/21 05/18/21 23:54 23:56 23:59 Temperature Pulse Rate 76 74 78 Respiratory Rate Blood Pressure 114/82 O2 Sat by Pulse 96 98 Oximetry 05/19/21 05/19/21 05/19/21 00:04 00:09 00:10 Temperature Pulse Rate 78 81 78 Respiratory Rate Blood Pressure 117/83 O2 Sat by Pulse 96 98 Oximetry 05/19/21 05/19/21 05/19/21 00:14 00:19 00:22 Temperature 97.7 F Pulse Rate 77 92 H Respiratory 16 Rate Blood Pressure O2 Sat by Pulse 97 97 Oximetry 05/19/21 05/19/21 05/19/21 00:24 00:29 00:34 Temperature Pulse Rate 96 H 81 80 Respiratory Rate Blood Pressure O2 Sat by Pulse 95 98 97 Oximetry 05/19/21 05/19/21 05/19/21 00:39 00:44 00:49 Temperature Pulse Rate 94 H 98 H 96 H Respiratory Rate Blood Pressure O2 Sat by Pulse 98 98 99 Oximetry 05/19/21 05/19/21 05/19/21 00:52 00:55 01:00 Temperature Pulse Rate 78 79 77 Respiratory Rate Blood Pressure 128/95 O2 Sat by Pulse 96 97 Oximetry 05/19/21 05/19/21 05/19/21 01:05 01:09 01:10 Temperature Pulse Rate 80 85 93 H Respiratory Rate Blood Pressure O2 Sat by Pulse 97 93 96 Oximetry 05/19/21 05/19/21 05/19/21 01:15 01:20 01:21 Temperature Pulse Rate 77 79 82 Respiratory Rate Blood Pressure 122/93 O2 Sat by Pulse 96 95 Oximetry 05/19/21 05/19/21 05/19/21 01:25 01:30 01:35 Temperature Pulse Rate 79 79 81 Respiratory Rate Blood Pressure O2 Sat by Pulse 97 97 96 Oximetry 05/19/21 05/19/21 05/19/21 01:39 01:40 01:45 Temperature Pulse Rate 96 H 87 84 Respiratory Rate Blood Pressure O2 Sat by Pulse 93 98 95 Oximetry 05/19/21 05/19/21 05/19/21 01:50 01:53 01:55 Temperature Pulse Rate 85 79 82 Respiratory Rate Blood Pressure 118/87 O2 Sat by Pulse 95 98 Oximetry 05/19/21 05/19/21 05/19/21 02:00 02:05 02:10 Temperature Pulse Rate 81 84 90 Respiratory Rate Blood Pressure O2 Sat by Pulse 96 97 97 Oximetry 05/19/21 05/19/21 05/19/21 02:15 02:16 02:20 Temperature Pulse Rate 87 100 H 84 Respiratory Rate Blood Pressure O2 Sat by Pulse 97 94 97 Oximetry 05/19/21 05/19/21 05/19/21 02:23 02:25 02:29 Temperature Pulse Rate 86 85 98 H Respiratory Rate Blood Pressure 135/95 O2 Sat by Pulse 96 94 Oximetry 05/19/21 05/19/21 05/19/21 02:30 02:35 02:40 Temperature Pulse Rate 102 H 89 82 Respiratory Rate Blood Pressure O2 Sat by Pulse 94 95 96 Oximetry 05/19/21 05/19/21 05/19/21 02:45 02:50 02:51 Temperature Pulse Rate 83 79 81 Respiratory Rate Blood Pressure 127/57 O2 Sat by Pulse 97 95 Oximetry 05/19/21 05/19/21 05/19/21 02:52 02:56 03:00 Temperature Pulse Rate 83 81 82 Respiratory Rate Blood Pressure O2 Sat by Pulse 94 97 94 Oximetry 05/19/21 05/19/21 05/19/21 03:01 03:06 03:07 Temperature Pulse Rate 81 75 80 Respiratory Rate Blood Pressure O2 Sat by Pulse 94 95 94 Oximetry 05/19/21 05/19/21 05/19/21 03:11 03:14 03:16 Temperature Pulse Rate 81 79 82 Respiratory Rate Blood Pressure O2 Sat by Pulse 95 94 95 Oximetry 05/19/21 05/19/21 05/19/21 03:20 03:21 03:23 Temperature Pulse Rate 79 81 82 Respiratory Rate Blood Pressure 136/102 O2 Sat by Pulse 94 95 Oximetry 05/19/21 05/19/21 05/19/21 03:26 03:31 03:36 Temperature Pulse Rate 83 89 80 Respiratory Rate Blood Pressure O2 Sat by Pulse 94 98 96 Oximetry 05/19/21 05/19/21 05/19/21 03:40 03:41 03:46 Temperature Pulse Rate 82 90 83 Respiratory Rate Blood Pressure O2 Sat by Pulse 94 96 96 Oximetry 05/19/21 05/19/21 05/19/21 03:51 03:52 03:56 Temperature Pulse Rate 81 94 H 85 Respiratory Rate Blood Pressure 118/76 O2 Sat by Pulse 97 93 96 Oximetry 05/19/21 05/19/21 05/19/21 04:01 04:06 04:10 Temperature Pulse Rate 81 85 91 H Respiratory Rate Blood Pressure O2 Sat by Pulse 97 95 97 Oximetry 05/19/21 05/19/21 05/19/21 04:13 04:16 04:21 Temperature 98.2 F Pulse Rate 105 H 90 Respiratory 17 Rate Blood Pressure 121/74 O2 Sat by Pulse 97 97 Oximetry 05/19/21 05/19/21 05/19/21 04:26 04:31 04:36 Temperature Pulse Rate 92 H 91 H 94 H Respiratory Rate Blood Pressure O2 Sat by Pulse 97 97 97 Oximetry 05/19/21 05/19/21 05/19/21 04:40 04:46 04:51 Temperature Pulse Rate 96 H 94 H 93 H Respiratory Rate Blood Pressure 116/68 O2 Sat by Pulse 97 96 97 Oximetry 05/19/21 05/19/21 05/19/21 04:55 05:01 05:06 Temperature Pulse Rate 95 H 95 H 107 H Respiratory Rate Blood Pressure O2 Sat by Pulse 97 97 97 Oximetry 05/19/21 05/19/21 05/19/21 05:10 05:16 05:21 Temperature Pulse Rate 103 H 96 H 101 H Respiratory Rate Blood Pressure O2 Sat by Pulse 96 96 97 Oximetry 05/19/21 05/19/21 05/19/21 05:22 05:25 05:29 Temperature Pulse Rate 96 H 96 H 116 H Respiratory Rate Blood Pressure 119/73 O2 Sat by Pulse 97 93 Oximetry 05/19/21 05/19/21 05/19/21 05:30 05:36 05:41 Temperature Pulse Rate 94 H 96 H 98 H Respiratory Rate Blood Pressure O2 Sat by Pulse 98 97 96 Oximetry 05/19/21 05/19/21 05/19/21 05:46 05:50 05:52 Temperature Pulse Rate 98 H 99 H 105 H Respiratory Rate Blood Pressure 110/65 O2 Sat by Pulse 97 95 Oximetry 05/19/21 05/19/21 05/19/21 05:56 06:00 06:06 Temperature Pulse Rate 96 H 96 H 100 H Respiratory Rate Blood Pressure O2 Sat by Pulse 96 97 97 Oximetry 05/19/21 05/19/21 05/19/21 06:10 06:15 06:18 Temperature 98.6 F Pulse Rate 109 H 94 H Respiratory 18 Rate Blood Pressure O2 Sat by Pulse 96 96 Oximetry 05/19/21 05/19/21 05/19/21 06:21 06:23 06:25 Temperature Pulse Rate 101 H 94 H 96 H Respiratory Rate Blood Pressure 135/94 O2 Sat by Pulse 95 95 Oximetry 05/19/21 05/19/21 05/19/21 06:30 06:31 06:35 Temperature Pulse Rate 88 96 H 92 H Respiratory Rate Blood Pressure O2 Sat by Pulse 94 94 94 Oximetry 05/19/21 05/19/21 05/19/21 06:36 06:40 06:41 Temperature Pulse Rate 92 H 94 H 93 H Respiratory Rate Blood Pressure O2 Sat by Pulse 95 95 94 Oximetry 05/19/21 05/19/21 05/19/21 06:45 06:51 06:52 Temperature Pulse Rate 92 H 89 89 Respiratory Rate Blood Pressure 134/86 O2 Sat by Pulse 95 95 Oximetry 05/19/21 05/19/21 05/19/21 06:55 07:00 07:06 Temperature Pulse Rate 92 H 91 H 90 Respiratory Rate Blood Pressure O2 Sat by Pulse 95 95 94 Oximetry 05/19/21 05/19/21 05/19/21 07:11 07:12 07:15 Temperature Pulse Rate 93 H 95 H 104 H Respiratory Rate Blood Pressure O2 Sat by Pulse 95 94 95 Oximetry 05/19/21 05/19/21 07:21 07:26 Temperature Pulse Rate 92 H 96 H Respiratory Rate Blood Pressure 134/85 O2 Sat by Pulse 95 93 Oximetry - Exam Narrative Exam: Pitocin currently at 18mu/hr. Cardiovascular: Regular rate Lungs: Normal air movement Abdomen: Present: normal appearance, soft Vulva: both: normal Uterus: Present: normal FHR: category 1 Uterine Contraction Monitor Mode: Internal (External for heart rate, IUPC for ctxs.) Cervical Dilatation: 5 Cervical Effacement Percentage: 80 (Cervix feels like its starting to swell.) station: -1 Uterine Contraction Pattern: Regular Extremities: normal - Labs Labs: Abnormal Labs 05/17/21 20:03 MCH 33 H Laboratory Results - last 24 hr 05/18/21 09:25 SARS-CoV-2 (PCR) Negative
[2021-05-19] MEDS: OXYTOCIN DRIP 30 UNITS/500 ML BAG IV SCH ×3 (07:40→09:24)
[2021-05-19] MEDS ORDERED: BUPIVACAINE/PF (0.25%) 2.5 MG/ML 10 ML VIAL INFILTRATI ONE (10:12)
--- NOTE | 2021-05-19 10:19 | Event Note ---
Date: 05/19/21 (Pt feeling more pressure) Received a call from the RN because the patient was complaining of vaginal pressure. Upon assessment cervical exam 680/0. Discussed with patient her cervical exam has changed some, but dilation has been slow. We can continue with position changes and increasing the Pitocin for labor and continue to try, but if she does not dilate she may need a . Pt states that she does not wish to continue with an IOL and prefers a . Dr. Blake made aware. Explained to the patient the risks of a such as pain, bleeding, infection, damage to surrounding tissues and organs, injury to the baby during a , and need for c-sections with future pregnancies. Pt verbalized understanding desires to proceed with a . Consents signed and on chart.
[2021-05-19] MEDS ORDERED: AZITHROMYCIN/NS 500 MG/250 ML 500 MG/250 ML BAG IV NR (11:00)
[2021-05-19] MEDS ORDERED: ceFAZolin/Water 2 GM/20 ML 2 GM/20 ML SYRINGE IV NR (11:00)
[2021-05-19] MEDS ORDERED: FAMOTIDINE 20 MG/2 ML INJ IV ONE ×2 (12:00→14:54)
[2021-05-19] MEDS ORDERED: METOCLOPRAMIDE 10 MG/2 ML INJ IV ONE (12:00)
[2021-05-19] MEDS ORDERED: BICITRA ORAL LIQD 30ML PO ONE (12:00)
--- NOTE | 2021-05-19 12:53 | Event Note ---
Date: 05/19/21 Indication for section discussed. Patient informed the risks of the surgery include bleeding possibly bleeding heavy enough to require blood transfusion, infection possible damage to bowel bladder ureter. All questions answered. Patient agrees to proceed
[2021-05-19] MEDS ORDERED: METOCLOPRAMIDE 10 MG/2 ML INJ ONE (14:53)
[2021-05-19] MEDS ORDERED: BICITRA ORAL LIQD 30ML ONE (14:53)
[2021-05-19] MEDS ORDERED: ONDANSETRON 4 MG/2 ML INJ ONE (15:19)
[2021-05-19] MEDS ORDERED: LIDOCAINE 2%/EPINEPHRINE 1:200,000 VIAL (20 ML) INFILTRATI ONE (15:19)
[2021-05-19] MEDS ORDERED: BUPIVACAINE/PF (0.25%) 2.5 MG/ML 30 ML VIAL INFILTRATI ONE (15:22)
[2021-05-19] MEDS ORDERED: SODIUM CHLORIDE 0.9% IRR 1,500 ML BOTTLE IR ONE (15:45)
[2021-05-19] MEDS ORDERED: WATER FOR IRRIG STERILE 1,500 ML BOTTLE IR ONE (15:46)
--- NOTE | 2021-05-19 15:47 | Anesthesia Day of Surgery ---
Anesthesia Day of Surgery - Day of Surgery Patient Examined: Yes Patient H&P Reviewed: Yes Patient is NPO: Yes Beta Blockers: No Cardiac Clearance: No Pulmonary Clearance: No Ramon's Test: N/A
[2021-05-19] MEDS ORDERED: PROMETHAZINE 25 MG RECT SUPP PR PRN (15:48)
[2021-05-19] MEDS ORDERED: NALOXONE 0.4 MG/1 ML INJ IV PRN ×2 (15:48→23:31)
[2021-05-19] MEDS ORDERED: HYDROmorphone 1 MG/1 ML INJ IV PRN (15:48)
[2021-05-19] MEDS ORDERED: dexAMETHasone 20 MG/5 ML VIAL ONE (16:34)
[2021-05-19] MEDS ORDERED: OXYTOCIN 10 UNIT/1 ML INJ ONE (16:34)
--- NOTE | 2021-05-19 17:23 | Operative Report ---
Operative Report Operative Report: Date of procedure: May 19, 2021 Pre-operative diagnosis: Intrauterine at 41 weeks with failed ind uction of labor Post-operative diagnosis: Same Procedure name(s): Primary low transverse section Surgeon: Igor Blake MD Gold Reclaimer: DWAYNE Anesthesia: Epidural EBL: 800 cc quantitative blood loss 1299 cc Complications: Uterine atony Findings: Patient with normal uterus tubes and ovaries bilaterally. Male infant weight 9 pounds 4 ounces Apgars 8 at 1 minute and 9 at 5 minutes. Specimen(s): None Procedure: The patient was brought to the operating room. Her episural was dosed was placed without any complications. She was then placed in left lateral tilt. Prepped and draped in the usual sterile manner. After testing for adequate anesthesia level, a Pfannenstiel incision was made. This incision was taken down to the fascia. The fascia was then nicked in the midline. This incision was extended out laterally with Cannon scissors. The fascia was then sharply and bluntly from the underlying rectus muscles. The rectus muscles were bluntly and sharply . The peritoneum was then entered with the multiple tube winding machine operator's fingers. This incision was spread vertically with care not to damage the bladder below. The [place] self-retaining tractor was then placed without any difficulty. The bladder flap was then formed sharply and bluntly with Metzenbaum scissors. A transverse incision was made in lower uterine segment. This incision was extended laterally with the operators fingers. The amniotic sac was then entered bluntly with the multiple tube winding machine operator's fingers. The infant was delivered from the vertex position. Bulb suction on the mother's abdomen. Cord was double clamped and cut. The was then passed to the nursery personnel who were in attendance. The above scores were given by the nursery personnel. The placenta was then bluntly removed. The uterus was then externalized and wiped clean the remaining products. The uterus was boggy but did not respond at the room Methergine 0.2 mg given IM. The uterine incision was closed in layers. The first incision was closed in a locking manner using 0 Vicryl. This was followed by imbricating stitch also with 0 Vicryl. This closure was hemostatic. The bladder flap was copiously irrigated and found to be hemostatic. The pelvis was copiously irrigated and found to be hemostatic. The uterus was then placed back to the patient's abdomen. The retractors were removed. The rectus muscles were inspected and found to be hemostatic. The fascia was then closed in a running manner using 0 Vicryl. This incision was hemostatic irrigation Bovie. The skin was reapproximated with 4-0 Vicryl subcuticularly. The patient tolerated procedure well. Her urine was clear. The was admitted to the [facility] baby nursery. The patient was accompanied to recovery room in good condition. Instrument count correct times 3.
[2021-05-19 20:41] LABS: Hematocrit 39.3 % (30.3-42.9); Hemoglobin 13.5 gm/dl (10.1-14.3); Mean Corpuscular HGB Conc 34 % (30-34); Mean Corpuscular Volume 96 fl (79-97); Platelet Count 191 K/mm3 (140-440); Red Blood Count 4.08 M/mm3 (3.65-5.03); Red Cell Distribution Width 13.8 % (13.2-15.2)
[2021-05-19 20:56] LABS: Alanine Aminotransferase 35 units/L (7-56); Uric Acid 7.8 mg/dL (3.5-7.6)
[2021-05-19] MEDS ORDERED: LANOLIN/ZINC/DIMETHICONE (LANSINOH) 7 GM TP PRN (23:31)
[2021-05-19] MEDS ORDERED: HYDROcodone/ACETAMINOPHEN 5-325 MG TAB PO PRN (23:31)
[2021-05-19] MEDS ORDERED: ONDANSETRON 4 MG/2 ML INJ IV PRN (23:31)
[2021-05-19] MEDS ORDERED: SIMETHICONE 80 MG CHEW TAB PO PRN (23:31)
[2021-05-19] MEDS ORDERED: MAGNESIUM HYDROXIDE (MOM) ORAL LIQD UDC PO PRN (23:31)
[2021-05-19] MEDS ORDERED: D5W/LACTATED RINGERS 1,000 ML IV SCH (23:31)
[2021-05-19] MEDS ORDERED: OXYTOCIN DRIP 30 UNITS/500 ML BAG IV SCH (23:31)
[2021-05-19] MEDS ORDERED: WITCH HAZEL/ GLYCERIN PAD TP PRN (23:31)
[2021-05-20] MEDS: ceFAZolin/NS 1 GM/50 ML 1 GM/50 ML BAG IV SCH ×2 (00:11→09:03)
[2021-05-20] MEDS: KETOROLAC 30 MG/1 ML INJ IV SCH ×2 (00:42→05:45)
[2021-05-20 01:04] LABS: Hematocrit 36.8 % (30.3-42.9); Hemoglobin 12.5 gm/dl (10.1-14.3)
[2021-05-20 05:14] LABS: Hematocrit 34.4 % (30.3-42.9); Hemoglobin 11.5 gm/dl (10.1-14.3)
[2021-05-20] MEDS: FERROUS SULFATE 325 MG TAB PO SCH (10:21)
[2021-05-20] MEDS: PRENATAL VIT27-FE FUMARATE-FOLIC ACID VIT TAB PO SCH (10:21)
--- NOTE | 2021-05-20 11:35 | Post Anesthesia Evaluation ---
- Post Anesthesia Evaluation Patient Participated: Yes Airway Patent: Yes Stable Respiratory Function: Yes Nausea/Vomiting: No Temp > 96.8F: Yes Pain Manageable: Yes Adequeate Hydration: Yes Anesthesia Complications: No Block Receding Appropriately: Yes Patient on Ventilator: No
--- NOTE | 2021-05-20 14:05 | Progress Note ---
Assessment and Plan - Patient Problems (1) delivery delivered Current Visit: Yes Status: Acute Plan to address problem: Postoperative day #1. Patient without nausea vomiting. Patient tolerating advancing diet well Patient without fever. Will ambulate in halls. We will increase pain medicine due to tablets every 6 hours. We will continue routine postoperative care. Infant is doing well. Will continue routine post operative care. Patient's postoperative hematocrit is 34.4%. Patient is breast-feeding and desires oral contraceptives . (2) Failed induction of labor Current Visit: Yes Status: Acute Qualifiers: Failed induction of labor type: medical Qualified Code(s): O61.0 - Failed medical induction of labor (3) Post term , 41 weeks Current Visit: Yes Status: Acute Subjective - Subjective Date of service: 05/20/21 Principal diagnosis: IUP @41.5wks, Postdates IOL postop day 1 Patient reports: appetite normal, voiding normally, pain poorly controlled (Patient took 1 [place]), ambulating normally : doing well Objective - Vital Signs Latest vital signs: Vital Signs Temp Pulse Resp BP Pulse Ox Pulse Ox 05/20/21 09:26 97.6 F 92 H 18 113/80 96 05/20/21 06:15 18 05/20/21 05:45 18 05/20/21 01:12 18 05/20/21 00:42 18 05/20/21 00:11 98.1 F 85 18 137/79 95 05/19/21 21:50 98.2 F 77 18 138/79 97 05/19/21 21:38 98 05/19/21 21:13 86 96 05/19/21 21:08 85 96 05/19/21 21:03 84 96 05/19/21 20:58 83 95 05/19/21 20:56 85 128/87 05/19/21 20:53 84 97 05/19/21 20:48 86 96 05/19/21 20:43 86 96 05/19/21 20:38 89 96 05/19/21 20:33 84 97 05/19/21 20:28 81 96 05/19/21 20:26 84 139/79 94 05/19/21 20:23 85 96 05/19/21 20:18 82 96 05/19/21 20:13 88 97 05/19/21 20:08 85 97 05/19/21 20:03 84 96 05/19/21 19:58 86 96 05/19/21 19:56 84 136/85 94 05/19/21 19:53 80 95 05/19/21 19:48 88 96 05/19/21 19:43 98 H 95 05/19/21 19:40 95 05/19/21 19:38 96 H 96 05/19/21 19:36 90 94 05/19/21 19:33 92 H 96 05/19/21 19:29 99.4 F 87 21 95 05/19/21 19:28 91 H 96 05/19/21 19:27 86 132/90 05/19/21 19:25 90 94 05/19/21 19:23 96 H 95 05/19/21 18:25 80 167/95 05/19/21 17:50 80 20 166/94 95 05/19/21 17:35 84 27 H 163/95 95 05/19/21 17:20 86 20 158/98 96 05/19/21 17:05 82 20 164/95 96 05/19/21 17:00 83 23 154/94 96 05/19/21 16:55 88 24 149/93 96 05/19/21 16:50 98.7 F 89 22 153/76 96 05/19/21 15:16 113 H 95 05/19/21 15:15 104 H 92 05/19/21 15:11 96 H 94 05/19/21 15:06 104 H 94 05/19/21 15:04 106 H 94 05/19/21 15:01 104 H 93 05/19/21 14:56 111 H 95 05/19/21 14:53 102 H 94 05/19/21 14:51 110 H 96 05/19/21 14:46 102 H 96 05/19/21 14:41 104 H 97 05/19/21 14:36 102 H 96 05/19/21 14:31 108 H 96 05/19/21 14:26 99 H 97 05/19/21 14:21 101 H 96 05/19/21 14:16 99 H 94 05/19/21 14:11 119 H 94 05/19/21 14:06 95 H 94 Intake and Output 05/19/21 05/20/21 05/20/21 22:59 06:59 14:59 Intake Total 1200 50 Output Total 3850 1000 Balance -6204 -046 Intake: IV 1200 50 ANCEF/NS 1 GM/50 ML 1 gm 50 In 50 ml @ 100 mls/hr IV Q8H [facility] Rx#:[id number] Output: Urine 3850 1000 Indwelling Catheter 2100 1000 Other: Total, Output Amount 500 1000 - Exam Breasts: Present: deferred Cardiovascular: Present: Regular rate Lungs: Present: Normal air movement Abdomen: Present: normal appearance, soft Uterus: Present: normal, fundal height below umbilicus Incision: Present: normal, dry, intact - Labs Labs: Abnormal lab results 05/19/21 05/19/21 Range/Units 19:20 19:20 WBC 17.1 H (4.5-11.0) K/mm3 MCH 33 H (28-32) pg Uric Acid 7.8 H (3.5-7.6) mg/dL Lactate Dehydrogenase 285 H (91-180) units/L
[2021-05-20] MEDS ORDERED: IBUPROFEN 600 MG TAB PO PRN (17:12)
[2021-05-20] MEDS ORDERED: MEASLES, MUMPS & RUBELLA 12,500 UNIT/0.5 ML VACCINE SUB-Q ONE (17:14)
[2021-05-20] MEDS: HYDROcodone/ACETAMINOPHEN 5-325 MG TAB PO PRN ×2 (17:26→23:35)
[2021-05-21] MEDS: KETOROLAC 30 MG/1 ML INJ IV SCH (02:53)
[2021-05-21] MEDS ORDERED: TETANUS,DIPH,PERTUSS(ACELL) VACCINE 0.5 ML SYRINGE IM ONE (06:00)
[2021-05-21] MEDS: HYDROcodone/ACETAMINOPHEN 5-325 MG TAB PO PRN ×2 (08:05→16:51)
[2021-05-21] MEDS: FERROUS SULFATE 325 MG TAB PO SCH (10:47)
[2021-05-21] MEDS: PRENATAL VIT27-FE FUMARATE-FOLIC ACID VIT TAB PO SCH (10:47)
--- NOTE | 2021-05-21 12:16 | Discharge Summary ---
Providers - Providers Date of Admission: 05/17/21 17:02 Date of discharge: 05/21/21 Attending physician: IFEOMA NÚÑEZ 05/19/21 23:31 Consult to Table Games Floor Supervisor [CONS] Routine Reason For Exam: Primary care physician: IFEOMA NÚÑEZ Hospitalization Reason for admission: induction of labor, IUP at term Delivery: Procedure: section, primary low transverse Procedure details: See dictated operative note Episiotomy: none Laceration: none Incision: normal, dry, intact Other procedures: none complications: none Discharge diagnosis: IUP at term delivered, other (Postdates , failed labor induction) [place] baby: male Hospital course: Patient was admitted for labor induction. Patient had failed labor induction and desire to proceed with a section. Patient underwent the procedure without complications. Her post operative course was benign she was afebrile throughout. Patient postoperative day 1 hematocrit was in an acceptable range. Patient had no orthostatic symptoms. Patient was tolerating regular diet and voiding without difficulty at time of discharge. Patient incision was healing well without evidence of infection. Patient plans to breast-feed and desires control pills. Condition at discharge: Good Disposition: 01 HOME / SELF CARE / HOMELESS - Discharge Diagnoses (1) delivery delivered Status: Acute (2) Failed induction of labor Status: Acute Qualifiers: Failed induction of labor type: medical Qualified Code(s): O61.0 - Failed medical induction of labor (3) Post term , 41 weeks Status: Acute Plan - Discharge Medications Prescriptions: Lidocain2.5%/Prilocai2.5% [Emla] 5 gm TP ONCE #1 tube Ferrous Sulfate [Feosol 325 MG tab] 325 mg PO BID #60 tablet Ibuprofen [Motrin] 800 mg PO TID PRN #30 tablet PRN Reason: Pain oxyCODONE /ACETAMINOPHEN [Percocet 5/325 mg] 1 tab PO Q6HR PRN #20 tablet PRN Reason: Pain - Provider Discharge Summary Activity: routine, no sex for 6 weeks, no heavy lifting 4 weeks, no strenuous exercise Diet: routine Instructions: routine Additional instructions: [] Smoking cessation referral if applicable(refer to patient education folder for contact #) [] Refer to [facility]'s [facility] Booklet Call your doctor immediately for: * Fever > 100.5 * Heavy vaginal bleeding ( >1 pad per hour) * Severe persistent headache * Shortness of breath * Reddened, hot, painful area to leg or breast * Drainage or odor from incision. * Keep incision clean and dry at all times and follow doctor's instructions regarding bathing/showering Patient is to call and schedule circumcision for her son if she desires. - Follow up plan Follow up: PRIMARY CARE, [Referring] - 7 Days
[2021-05-21 19:23] VITALS: BP 124/84
== END 2021-05-21 18:45 | disposition home or self-care (01) | DRG 766 ==
LOC: TRG 14:30 → APU 15:16 → LD 16:49 → TRG 17:08 → LD 19:49 → APU 05-19 15:49 → LD 05-19 19:03 → OB 05-19 23:19
PROVIDERS: ADMIT Obstetrics & Gynecology; ATTEND Obstetrics & Gynecology
PROC: 10D00Z1 Extraction of Products of Conception, Low, Open Approach (ICD-10-PCS; principal; 2021-05-19)
PROC: 3E0R3BZ Introduction of Anesthetic Agent into Spinal Canal, Percutaneous Approach (ICD-10-PCS; 2021-05-19)
PROC: 00HU33Z Insertion of Infusion Device into Spinal Canal, Percutaneous Approach (ICD-10-PCS; 2021-05-19)
PROC: 10H07YZ Insertion of Other Device into Products of Conception, Via Natural or Artificial Opening (ICD-10-PCS; 2021-05-19)
PROC: 3E0234Z Introduction of Serum, Toxoid and Vaccine into Muscle, Percutaneous Approach (ICD-10-PCS; 2021-05-20)
DX: O48.0 Post-term pregnancy (principal); O99.52 Diseases of the respiratory system complicating childbirth; Z20.822 Contact with and (suspected) exposure to COVID-19; O99.62 Diseases of the digestive system complicating childbirth; K21.9 Gastro-esophageal reflux disease without esophagitis; O61.9 Failed induction of labor, unspecified; Z3A.41 41 weeks gestation of pregnancy; Z37.0 Single live birth; Z23 Encounter for immunization; O62.2 Other uterine inertia
CPT/HCPCS: 36415; 59200; 82565; 83615; 84450; 84460; 84550; 85014; 85018; 85027; 86592; 86850; 86900; 86901; G0378; J3490; J0595; J0690; J1100; J1170; J1200; J1885; J2405; J2590; J2765; J3010; J7120; U0003